=== PATIENT | female | born 1995 | race Caucasian/White ===

== ENCOUNTER → 2017-06-15 02:39 | Observation (INO) ==
[2017-06-15 00:05] VITALS: BP 122/67
[2017-06-15 00:24] LABS: Bilirubin,Urine Negative (Negative); Blood,Urine Negative (Negative); Clarity,Urine Cloudy (Clear); Color,Urine Dark Yellow (Yellow); Glucose,Urine (UA) Normal (Normal); Ketones,Urine 80 mg/dL (Negative); Leukocyte Esterase,Urine Large (Negative); Nitrite,Urine Negative (Negative); Protein,Urine 30 mg/dL (Neg-Trace); Urobilinogen,Urine Normal (Normal)
--- NOTE | 2017-06-15 00:26 | OB/GYN History & Physical ---
Date of Encounter: 06/15/17 Time of Encounter: 00:13 Assessment and Plan (1) UTI (urinary tract infection) during Current visit: Yes Status: Acute UA with large leukocytes, WBC's, and bacteria. She has had 2 rounds of outpatient treatment that she has not completed. Will treat with IV rocephin. Discharge home with PO antibiotics and precautions. POC per Dr. Antoine. Qualifiers: Trimester: third trimester Qualified Code(s): O23.43 - Unspecified infection of urinary tract in , third trimester (2) 32 weeks gestation of Current visit: Yes Status: Acute Good FM. NST reactive,. (3) Dehydration during Current visit: Yes Status: Acute Push PO fluids. 1 liter IV LR. History of Present Illness Chief complaint: right side pain HPI: Ms. Ma is a 22 year old female presenting at 32w2d with c/o constant sharp pain in right side of abdomen and back. She reports it started yesterday ( Sunday) morning. She tried heat at home that helped for a short time. Movement makes the pain worse. She denies cramping, leaking fluid, or vaginal bleeding. Good FM. She does report urinary frequency and dysuria. She was recently given antibiotics for UTI but did not finish them. Past Med Surg Social Fam HX - Past Medical History Medical history: no medical history Psychiatric history: no psych history - Past Surgical History Surgical History: no surgical history - Social History Smoking Status: Never smoker Alcohol use: none Drug use: none - Family History Mother Age: 42 Living Status: Still Living Hx Family Cardiac Disorders: No Hx Family Respiratory Disorders: No Hx Family Cancer: No Hx Family GI Disorders: No Hx Family Genitourinary Disorders: No Hx Family Endocrine Disorder: No Hx Family Musculoskeletal Disorders: No Hx Family Neuromuscular Disorders: No Hx Family Neurologic Disorders: No Hx Family HEENT Disorders: No Hx Family Autoimmune Disorders: No Hx Family Reproductive Disorders: No Hx Family Psychosocial Disorders: No Hx Family Medical Disorders: No Obstetrical History - Pregnancies : 1 Medications and Allergies Flintstones Multivit Chew Tab 1 tab PO DAILY 06/14/17 [History] Omeprazole 20 mg PO DAILY 06/14/17 [History] 3 Allergy/AdvReac Type Severity Reaction Status Date / Time No Known Allergies Allergy Verified 06/14/17 23:55 Review of System OB All systems PM: reviewed and no additional remarkable complaints except as stated Exam - Vital Signs Vital signs: Initial Vital Signs Pulse Resp BP 101 16 122/67 06/14/17 23:57 06/14/17 23:57 06/14/17 23:57 - Constitutional Constitutional: well developed, well nourished, mild distress - HEENT HEENT: Mucus Membranes Moist - Lungs Respiratory exam: CTAB - Cardiovascular Cardiovascular exam: RRR - Abdomen Abdomen: Present: gravid, non tender - Extremities Extremities exam: normal inspection - Anus/Rectum Anus/Rectum: Present: normal perianal skin - Comments Comments: + right CVAT Results All other labs normal. - VTE Reasons for not Prescribing Prophylaxis: Treatment not Indicated - Low risk for VTE
[2017-06-15 00:32] LABS: Bacteria,Urine Moderate per hpf (None-Few); RBC,Urine 0-3 per hpf (0-3); Squamous Epithelial Cell,Urine Moderate per lpf (None-Few); WBC,Urine 15-30 per hpf (0-3)
[2017-06-15 00:57] LABS: Basophils % 0.2 %; Eosinophils % 0.2 %; Hematocrit 29.9 % (35.3-44.9); Hemoglobin 9.9 g/dL (11.5-15.4); Immature Granulocytes % 0.4 % (0-4); Lymphocytes % 8.2 %; Mean Corpuscular HGB Conc 33.1 g/dL (31.6-35.5); Mean Corpuscular Hemoglobin 27.7 pg (28.0-33.3); Mean Corpuscular Volume 83.5 fL (83.0-100.0); Mean Platelet Volume 10.7 fL (9.4-12.4); Monocytes # 1.3 K/mcL (0.0-1.3); Monocytes % 10.2 %; Neutrophils # 10.2 K/mcL (1.6-8.9); Platelet Count 161 K/mcL (140-400); Red Blood Count 3.58 M/mcL (3.82-4.97); Red Cell Distribution Width 12.7 % (11.5-14.5); Segmented Neutrophils % 80.8 %
[~2017-06-15 02:39] MED LIST: Acetaminophen 325 MG TABLET PO ONE; Ringers Solution, Lactated 1,000 ML IVC ONE
== END | disposition home or self-care (01) ==
LOC: 1NENULAB
PROVIDERS: ADMIT Registered Nurse; ATTEND Registered Nurse

== ENCOUNTER → 2017-07-10 15:41 | Observation (INO) ==
[2017-07-10 13:08] LABS: Bilirubin,Urine Negative (Negative); Blood,Urine Negative (Negative); Clarity,Urine Hazy (Clear); Color,Urine Dark Yellow (Yellow); Glucose,Urine (UA) Normal (Normal); Ketones,Urine 40 mg/dL (Negative); Leukocyte Esterase,Urine Moderate (Negative); Nitrite,Urine Negative (Negative); Protein,Urine 100 mg/dL (Neg-Trace); Specific Gravity,Urine 1.022 (1.010-1.025); Urobilinogen,Urine Normal (Normal)
[2017-07-10 13:09] LABS: Bacteria,Urine None Seen per hpf (None-Few); Hyaline Casts,Urine None Seen per lpf (None-Few); RBC,Urine 0-3 per hpf (0-3); Squamous Epithelial Cell,Urine Many per lpf (None-Few); WBC,Urine 30-50 per hpf (0-3)
[2017-07-10 13:11] LABS: Amphetamine Screen,Urine Negative ng/mL (Cutoff=1000); Barbiturate Screen,Urine Negative ng/mL (Cutoff=200); Benzodiazepines Screen,Urine Negative ng/mL (Cutoff=200); Cannabinoid Screen,Urine Negative ng/mL (Cutoff = 50); Cocaine Screen,Urine Negative ng/mL (Cutoff= 300); Opiate Screen,Urine Negative ng/mL (Cutoff=300); Phencyclidine Screen,Urine Negative ng/mL (Cutoff=25)
[2017-07-10 13:27] LABS: Renal Epithelial Cells,Urine Present per hpf (None-Few); Transitional Epi Cells,Urine Present per hpf (None-Few)
--- NOTE | 2017-07-10 15:33 | Discharge Summary ---
Date of Encounter: 07/10/17 Time of Encounter: 15:32 - Discharge Diagnosis (1) 36 weeks gestation of Priority: Primary Status: Acute Comments: admitted for observation discharge home after no cervical change, patient educated on early stages of labor and encouraged to follow up with primary OB provider in [place]. (2) NST (non-stress test) reactive on surveillance Priority: Secondary Status: Acute Comments: baseline 125 bpm moderate variability +15x15 accels no decels noted. Cat. 1 tracing. - Discharge Medications Home Medications: Flintstones Multivit Chew Tab 1 tab PO DAILY 06/14/17 [History] Omeprazole 20 mg PO DAILY 06/14/17 [History] Allergies/Adverse Reactions: 3 Allergy/AdvReac Type Severity Reaction Status Date / Time No Known Allergies Allergy Verified 06/14/17 23:55 Data Procedures and tests throughout hospitalization: Laboratory Tests 07/10/17 07/10/17 12:50 12:50 Ur Specimen Adequacy See below A Urine Color Dark Yellow Urine Clarity Hazy A Urine pH 7.0 Ur Specific [place] 1.022 Urine Protein 100 H Urine Glucose (UA) Normal Urine Ketones 40 H Urine Blood Negative Urine Nitrite Negative Urine Bilirubin Negative Urine Urobilinogen Normal Ur Leukocyte Esterase Moderate H Urine Microscopic RBC 0-3 Urine Microscopic WBC 30-50 H Ur Squamous Epith Cells Many H Ur Transition Epith Cell Present Ur Renal Epithelial Cell Present Urine Bacteria None Seen Hyaline Casts None Seen Ur Culture Indicated? YES A Urine Opiates Screen Negative Ur Barbiturates Screen Negative Ur Phencyclidine Scrn Negative Ur Amphetamines Screen Negative U Benzodiazepines Scrn Negative Urine Cocaine Screen Negative U Marijuana (THC) Screen Negative Labs on day of discharge: Labs from last 24 hours 07/10/17 07/10/17 12:50 12:50 Ur Specimen Adequacy See below A Urine Color Dark Yellow Urine Clarity Hazy A Urine pH 7.0 Ur Specific [place] 1.022 Urine Protein 100 H Urine Glucose (UA) Normal Urine Ketones 40 H Urine Blood Negative Urine Nitrite Negative Urine Bilirubin Negative Urine Urobilinogen Normal Ur Leukocyte Esterase Moderate H Urine Microscopic RBC 0-3 Urine Microscopic WBC 30-50 H Ur Squamous Epith Cells Many H Ur Transition Epith Cell Present Ur Renal Epithelial Cell Present Urine Bacteria None Seen Hyaline Casts None Seen Ur Culture Indicated? YES A Urine Opiates Screen Negative Ur Barbiturates Screen Negative Ur Phencyclidine Scrn Negative Ur Amphetamines Screen Negative U Benzodiazepines Scrn Negative Urine Cocaine Screen Negative U Marijuana (THC) Screen Negative Date of admission: 07/10/17 12:04 Primary care physician: PCP NONE Discharging clinician: Kellie Trevino Anticipated date of discharge: 07/10/17 - Patient Status Disposition: Home, Self-Care Condition: Good Functional capacity at discharge: independent ambulation - Discharge Instructions Follow Up With: NONE,PCP [Primary Care Provider] - - Diet and Activity Activity: increase activity as tolerated Diet: regular diet Hospital Course NUTRITION COUNSELOR Hospital course: Patient is 22 y/o at 36 weeks gestation. Denies LOF or VB. Patient reports +FM. Time Attestation: Total time spent providing and/or coordinating discharge services: Time Spent: Less than 30 minutes Exam - Other Additional findings: Patient seen and assessed by RN. FHR 125 bpm moderate variability +15x15 accels no decels noted. Cat. 1 tracing. 4/100/0 - VTE Reasons for not Prescribing Prophylaxis: Treatment not Indicated - Low risk for VTE
== END | disposition home or self-care (01) ==
LOC: 1NENULAB
PROVIDERS: ADMIT Obstetrics & Gynecology; ATTEND Obstetrics & Gynecology

== ENCOUNTER 2017-07-11 02:30 | Inpatient (IN) ==
[2017-07-11] MEDS ORDERED: Ringers Solution, Lactated 1,000 ML ONE ×3 (02:58→06:55)
[2017-07-11] MEDS ORDERED: *HR* FentaNYL (PF) 100 MCG/2 ML VIAL ONE (03:28)
[2017-07-11] MEDS ORDERED: Bupivacaine-MPF 0.25% 10 ML VIAL ONE (03:28)
[2017-07-11] MEDS ORDERED: Epidural Premix (fent/bupiv) 110 ML EP ONE (03:29)
[2017-07-11] MEDS ORDERED: EPHEDrine 50 MG/ML VIAL ONE (04:26)
[2017-07-11 06:19] LABS: Basophils % 0.2 %; Eosinophils % 0.1 %; Hematocrit 32.6 % (35.3-44.9); Hemoglobin 10.5 g/dL (11.5-15.4); Immature Granulocytes % 0.8 % (0-4); Lymphocytes # 1.1 K/mcL (0.6-4.6); Lymphocytes % 5.8 %; Mean Corpuscular HGB Conc 32.2 g/dL (31.6-35.5); Mean Corpuscular Hemoglobin 26.2 pg (28.0-33.3); Mean Corpuscular Volume 81.3 fL (83.0-100.0); Mean Platelet Volume 11.7 fL (9.4-12.4); Monocytes # 1.1 K/mcL (0.0-1.3); Monocytes % 5.9 %; Platelet Count 227 K/mcL (140-400); Red Blood Count 4.01 M/mcL (3.82-4.97); Red Cell Distribution Width 12.7 % (11.5-14.5); Segmented Neutrophils % 87.2 %
--- NOTE | 2017-07-11 06:45 | OB/GYN History & Physical ---
Date of Encounter: 07/11/17 Time of Encounter: 02:17 Assessment and Plan (1) Spontaneous onset of labor Current visit: Yes Status: Acute admit for delivery (2) 36 weeks gestation of Current visit: No Status: Acute GBS negative nursery notified History of Present Illness Chief complaint: Contractions HPI: Ms. Ma is a 22 year old female at 36w2d presents to labor and delivery for complaints of contractions that started earlier today but recently got more intense. Patient was seen in L&D earlier today and was 4-5cm. Patient reports + FM, denies LOF or VB. Patient denies any complications with . Blood type: O negative, Rubella: nonimmune, Hep B: Nonreactive, GBS: Negative. Past Med Surg Social Fam HX - Past Medical History Source: patient Medical history: no medical history Psychiatric history: no psych history - Past Surgical History Surgical History: no surgical history - Social History Smoking Status: Never smoker Smokeless Tobacco Status: No Alcohol use: none Drug use: none Current living situation: Home - Independent Activity Level: Independent ambulation Recent Out of Country Travel Within the Last 8 Weeks: No Exposure or Possible Exposure to Illness During Travel: No - Family History Mother Adopted: No Living Status: Still Living Hx Family Cardiac Disorders: No Hx Family Respiratory Disorders: No Hx Family Cancer: No Hx Family GI Disorders: No Hx Family Endocrine Disorder: No Hx Family Neuromuscular Disorders: No Hx Family Neurologic Disorders: No Hx Family HEENT Disorders: No Hx Family Autoimmune Disorders: No Obstetrical History - Pregnancies : 1 Para: 0 Term: 0 : 0 Ab's: 0 Livin Medications and Allergies Flintstones Multivit Chew Tab 1 tab PO DAILY 06/14/17 [History] Omeprazole 20 mg PO DAILY 06/14/17 [History] 3 Allergy/AdvReac Type Severity Reaction Status Date / Time No Known Allergies Allergy Verified 06/14/17 23:55 Review of System OB - Constitutional Constitutional ROS IM: no fever(s), no headache(s) - Cardiovascular Cardiovascular: no chest pain, no palpitations, no syncope - Respiratory Respiratory: no dyspnea - Gastrointestinal Gastrointestinal: no constipation, no diarrhea, no heartburn, no nausea, no vomiting - Genitourinary Genitourinary: no abnormal vaginal bleeding, no dysuria, no flank pain, no urinary urgency, no vaginal discharge, no vaginal odor, no vaginal pruritis Exam - Constitutional Constitutional: well developed, well nourished, no acute distress, average body habitus - HEENT HEENT: Normocephaly, Mucus Membranes Moist - Neck Neck exam: full ROM, supple - Lungs Respiratory exam: CTAB - Cardiovascular Cardiovascular exam: RRR, +S1, +S2 - Abdomen Abdomen: Present: bowel sounds normal, gravid, non tender - Extremities Extremities exam: full ROM, normal capillary refill, normal inspection Deep Tendon Reflex Grade: 2+ Normal - Cervix Dilation: 6 Effacement: 100 Station: 0 - Uterus Uterus exam: Present: normal size, normal contour - Comments Comments: FHR 135 bpm moderate variability +15x15 accels no decels noted. Irregular contractions. Cat. 1 tracing. Results Result Diagrams: 07/11/17 02:45 Abnormal lab results WBC 18.3 K/mcL (4.3-11.1) H 07/11/17 02:45 Hgb 10.5 g/dL (11.5-15.4) L 07/11/17 02:45 Hct 32.6 % (35.3-44.9) L 07/11/17 02:45 MCV 81.3 fL (83.0-100.0) L 07/11/17 02:45 MCH 26.2 pg (28.0-33.3) L 07/11/17 02:45 Neutrophils # 16.0 K/mcL (1.6-8.9) H 07/11/17 02:45 All other labs normal.
--- NOTE | 2017-07-11 06:46 | Anesthesia Evaluation PreOp ---
Date of Encounter: 07/11/17 Time of Encounter: 03:30 - Past History Planned Operation: SUKHWINDER Cardiac History: Denies any Significant Hx Pulmonary History: Denies Any Significant HX CANTEEN MANAGER History: Denies Any Significant HX Other Medical History: Denies Any Significant HX Anesthesia History: Past Anesthesia (never had NA or GA; denies family h/o GA complications) : Yes Test: Positive Alcohol Use: none Drug use: none Medications and Allergies Flintstones Multivit Chew Tab 1 tab PO DAILY 06/14/17 [History] Omeprazole 20 mg PO DAILY 06/14/17 [History] 3 Allergy/AdvReac Type Severity Reaction Status Date / Time No Known Allergies Allergy Verified 06/14/17 23:55 - Meds/Allergy Pre-op Review Medications Reviewed: Yes Allergies Reviewed: Yes Beta Blockers on Current Med List: No Anesthesia Results - Labs 07/11/17 02:45 Anesthesia Exam O2 Sat Height 1.55 cm Weight 65.8 kg NPO (# of Hours): solids > 8hrs Pain Scale: 9 Pain Scale Used: Numeric (1 - 10) - HEENT Pupil (Motor): Pupils equal Mallampati: II Teeth: Normal Oral Opening: Greater than 3 - CANTEEN MANAGER LOC: Oriented CANTEEN MANAGER Motor: Normal RUE, Normal LUE, Normal RLE, Normal LLE, Normal Face CANTEEN MANAGER Sensory: Normal: RUE, LUE, RLE, LLE, Face - Cardiac Rhythm: Regular Murmur: None - Pulmonary Breath Sounds: bilateral Clear Respiratory Effort: Symmetrical Anesthesia Assess/Plan ASA Score: 2 Modified Sunny Scale for Level of Consciousness: Anixous, agitated or restless Anesthetic Plan: Regional Autologous Blood: No Monitoring Plan: Standard Monitors Recovery Plan: Other
[2017-07-11] MEDS ORDERED: Bupivacaine-MPF 0.25% 10 ML VIAL EP ONE (06:48)
[2017-07-11] MEDS ORDERED: *HR* FentaNYL (PF) 100 MCG/2 ML VIAL EP ONE (06:48)
--- NOTE | 2017-07-11 06:48 | Anesthesia Procedures ---
Date of Encounter: 07/11/17 Time of Encounter: 06:46 Procedures: Anesthesia - Epidural/Spinal Patient ID/Chart reviewed: Yes Patient examined: Yes OB Eval: Gestational age: 36 weeks 2 days OB Eval: : 1 OB Eval: Hx Para: 0 OB Eval: Dilated at (cm): 6 OB Eval: Contractions: Non-stressed pattern Consent Obtained: Yes Supplemental Oxygen: None/Room Air Site Prep: Aseptic Technique, Sterile prep and drape, Povidone-Iodine 1% Patient position: upright Local Anesthetic: Lidocaine 1% Amount of Local Anesthetic used: 3 Touhy Needle Gauge: 18 Touhy Needle Depth (cm): 5 Catheter Depth at Skin (cm): 10 Test Dose (1.5% Lido + Epi): Volume given (mls): 5 Test Dose Result: Negative Loading Dose: 0.25% Marcaine (mls): 5 Loading Dose: Fentanyl (mcg): 100 Loading Dose Administered: Thru Catheter Infusion Med: 0.125% Bupivacaine w/ 2 mcg/ml Fentanyl Infusion Rate (mls/hr): [address]: Tegaderm, Tape Interspace Used: L3-L4 Loss of Resistance (KASIE): Yes Blood: No CSF: No Paresthesia: No Vitals + FHT's: please see Lexy WHITEHEAD's electronic documentation
--- NOTE | 2017-07-11 06:55 | OB Labor Progress Note ---
Date of Encounter: 07/11/17 Time of Encounter: 04:20 Labor Progress Note - Subjective Subjective: Called to patient's room. Patient had just received epidural and had a prolonged decel with FHR down wo t60 bpm after epidural bolus. O2 masks on, IV bolus going. - Cervix Cervix: 7.5/100/0 - Heart Tones Heart Tones: prolonged decel down to 60 bpm FHR returned to 130 bpm - [place]: irregular - Interventions Interventions: SVE, AROM moderate amount of clear fluid. Patient repositioned. - Plan Plan: Continue labor management.
[2017-07-11] MEDS ORDERED: Epidural Premix (fent/bupiv) 110 ML EP SCH (07:00)
[2017-07-11] MEDS ORDERED: Lidocaine 1% 20 ML MDV ONE (09:04)
[2017-07-11] MEDS: Oxytocin 20 units/ LR 1000 mL 20 UNIT/1,000 ML BAG IVC SCH ×2 (09:36→10:51)
--- NOTE | 2017-07-11 09:49 | OB/GYN Procedure Note ---
Delivery - Delivery Date: 07/11/17 Provider: Krystyna Napoles Intrapartum events: foul smelling fluid Delivery induction: none Delivery augmentation: rupture of membranes Delivery monitor: external FHT, external uterine Anesthesia: epidural Estimated Blood Loss: 200 - Infant (s) A Delivery Date: 07/11/17 Infant Delivery Time: 08:52 Presentation: vertex Position: OA Route of delivery: Gender: Male Viability: Viable Pounds: 5 Ounces: 7 Weight Gram: 2480 kg at 1 minute: 8 at 5 mins: 9 Shoulder Dystocia: not encountered Specimens collected: cord blood Placenta: complete extraction (by Dr. Martinez from the vaginal vault) Cord: 3 umbilical vessels - Repair Episiotomy: none Laceration Description: Perineal - 1st Degree - Complications Delivery complications: retained placenta Delivery comments: Maternal bearing down efforts to of liveborn male. Vertex delivered OA, shoulders and body easily followed. Vigorous infant placed on maternal abdomen for drying and stimulation. APGARS 8/9. Placenta did not deliver spontaneously. Manual extraction by Dr. Martinez, complete upon inspection. Pitocin per policy. Fundus massaged to firm. EBL 200. Odor noted while awaiting placenta delivery, placenta cultured and sent to pathology. 1st degree perineal laceration noted repaired by Dr. Martinez. and mother stable and bonding skin to skin. I, Cassandra Martinez, was asked to present for retained placenta 44 minutes post delivery upon arrival. Vaginal bleeding minimal. Placenta is palpated in the vaginal vault and manually removed without difficulty with traction on the placenta in the vaginal. The placental disk is intact without missing cotyledons. First degree perineal laceration is reparied with 3-0 vicryl in standard fashion. Sponge and needle counts correct at the end of the procedure. Patient tolerated the procedure well. - Disposition Mom disposition: stable in LDR disposition: stable in LDR
[2017-07-11] MEDS ORDERED: Rho Immune Globulin 1,500 UNIT SYRINGE IM PRN (10:20)
[2017-07-11] MEDS ORDERED: Acetaminophen 325 MG TABLET PO PRN (10:20)
[2017-07-11] MEDS ORDERED: Lanolin 28 GM TUBE TP PRN (10:20)
[2017-07-11] MEDS ORDERED: Measles/Mumps/Rubella Vacc 0.5 ML VIAL SQ PRN (10:20)
[2017-07-11] MEDS ORDERED: Benzocaine/Menthol 56 GM AEROSOL SPRAY TP PRN (10:20)
[2017-07-11] MEDS: Ibuprofen 600 MG TABLET PO PRN (17:45)
[2017-07-12] MEDS: Ibuprofen 600 MG TABLET PO PRN (04:53)
[2017-07-12 06:34] LABS: Basophils # 0.1 K/mcL (0.0-0.2); Basophils % 0.4 %; Eosinophils # 0.2 K/mcL (0.0-0.6); Eosinophils % 1.2 %; Hematocrit 27.5 % (35.3-44.9); Hemoglobin 8.9 g/dL (11.5-15.4); Immature Granulocytes % 0.9 % (0-4); Lymphocytes # 2.3 K/mcL (0.6-4.6); Lymphocytes % 17.1 %; Mean Corpuscular HGB Conc 32.4 g/dL (31.6-35.5); Mean Corpuscular Hemoglobin 26.3 pg (28.0-33.3); Mean Corpuscular Volume 81.4 fL (83.0-100.0); Mean Platelet Volume 11.7 fL (9.4-12.4); Monocytes # 0.9 K/mcL (0.0-1.3); Monocytes % 6.9 %; Platelet Count 211 K/mcL (140-400); Red Blood Count 3.38 M/mcL (3.82-4.97); Segmented Neutrophils % 73.5 %
[2017-07-12 08:36] VITALS: BP 101/66
[2017-07-12] MEDS ORDERED: Prenatal Vit/FA 1 EACH TABLET PO SCH (09:00)
--- NOTE | 2017-07-12 09:08 | Discharge Summary ---
Date of Encounter: 07/12/17 Time of Encounter: 09:02 - Discharge Diagnosis (1) Vaginal delivery Priority: Primary Status: Acute Comments: Pt meeting milestones. She is requesting discharge home today. (2) Mother currently breast-feeding Priority: Secondary Status: Acute Comments: Pt requesting rx for breastpump. consult this am. Rx given. (3) anemia Priority: Secondary Status: Acute Comments: Discharge home on iron. - Discharge Medications Prescriptions: Ibuprofen [Motrin] 600 mg PO Q6HR PRN #60 tablet PRN Reason: Cramping Breast Pump [BREAST PUMP] 1 each .ROUTE AD #1 each Docusate [Colace] 100 mg PO BID #60 capsule Ferrous Sulfate 325 mg PO DAILY #30 tablet Home Medications: Flintstones Multivit Chew Tab 1 tab PO DAILY 06/14/17 [History] Benzocaine/Menthol [place] [Dermoplast [place]ell] 1 appl TP QID PRN aerosol 07/12/17 [Rx] Breast Pump [BREAST PUMP] 1 each .ROUTE AD #1 each 07/12/17 [Rx] Docusate [Colace] 100 mg PO BID #60 capsule 07/12/17 [Rx] Ferrous Sulfate 325 mg PO DAILY #30 tablet 07/12/17 [Rx] Ibuprofen [Motrin] 600 mg PO Q6HR PRN #60 tablet 07/12/17 [Rx] Lanolin 1 appl TP QID PRN tube 07/12/17 [Rx] Allergies/Adverse Reactions: 3 Allergy/AdvReac Type Severity Reaction Status Date / Time No Known Allergies Allergy Verified 06/14/17 23:55 Data Procedures and tests throughout hospitalization: Laboratory Tests 07/11/17 07/11/17 07/12/17 02:45 09:50 06:02 WBC 18.3 H 13.7 H RBC 4.01 3.38 L Hgb 10.5 L 8.9 L D Hct 32.6 L 27.5 L MCV 81.3 L 81.4 L MCH 26.2 L 26.3 L MCHC 32.2 32.4 RDW 12.7 13.0 Plt Count 227 211 MPV 11.7 11.7 Immature Gran % 0.8 0.9 Seg Neutrophils % 87.2 73.5 Lymphocytes % 5.8 17.1 Monocytes % 5.9 6.9 Eosinophils % 0.1 1.2 Basophils % 0.2 0.4 Neutrophils # 16.0 H 10.0 H Lymphocytes # 1.1 2.3 Monocytes # 1.1 0.9 Eosinophils # 0.0 0.2 Basophils # 0.0 0.1 Baby's Blood Type O RH NEGATIVE Mother's Blood Type O RH NEGATIVE Rhogam Indicated NO Labs on day of discharge: Labs from last 24 hours 07/12/17 07/11/17 06:02 09:50 WBC 13.7 H RBC 3.38 L Hgb 8.9 L D Hct 27.5 L MCV 81.4 L MCH 26.3 L MCHC 32.4 RDW 13.0 Plt Count 211 MPV 11.7 Immature Gran % 0.9 Seg Neutrophils % 73.5 Lymphocytes % 17.1 Monocytes % 6.9 Eosinophils % 1.2 Basophils % 0.4 Neutrophils # 10.0 H Lymphocytes # 2.3 Monocytes # 0.9 Eosinophils # 0.2 Basophils # 0.1 Baby's Blood Type O RH NEGATIVE Mother's Blood Type O RH NEGATIVE Rhogam Indicated NO Date of admission: 07/11/17 02:30 Primary care physician: PCP NONE Consults: 07/11/17 10:20 Consult to [employer] [CONS] Routine Comment: Vaginal delivery, consult needed Consult to [employer] Front Ventilator [CONS] Routine Reason for SW Consult: FOB and boyfriend issues Discharging clinician: Yashira Dietz Anticipated date of discharge: 07/12/17 - Patient Status Disposition: Home, Self-Care Condition: Good Functional capacity at discharge: independent ambulation Overall status at discharge: patient is progressing back to baseline - Discharge Instructions Follow Up With: NONE,PCP [Primary Care Provider] - Milvia Tejeda DO [Non-Partnered Physician] - - Diet and Activity Activity: increase activity as tolerated Diet: regular diet Hospital Course Reason for admission: active labor Delivery: Episiotomy: none Laceration: 1st degree Other procedures: none complications: none Discharge diagnosis: delivery baby: male Hospital course: - Delivery Date: 07/11/17 Provider: Krystyna Napoles Intrapartum events: foul smelling fluid Delivery induction: none Delivery augmentation: rupture of membranes Delivery monitor: external FHT, external uterine Anesthesia: epidural Estimated Blood Loss: 200 - (s) Infant A Delivery Date: 07/11/17 Infant Delivery Time: 08:52 Presentation: vertex Position: OA Route of delivery: Gender: Male Viability: Viable Pounds: 5 Ounces: 7 Weight Gram: 2480 kg at 1 minute: 8 at 5 mins: 9 Shoulder Dystocia: not encountered Specimens collected: cord blood Placenta: complete extraction (by Dr. Martinez from the vaginal vault) Cord: 3 umbilical vessels - Repair Episiotomy: none Laceration Description: Perineal - 1st Degree - Complications Delivery complications: retained placenta - Disposition Mom disposition: discharge home PPD#1 disposition: home with mother, Time Attestation: Total time spent providing and/or coordinating discharge services: Time Spent: Less than 30 minutes Exam - Constitutional Vitals: Temp Pulse Resp BP Pulse Ox 98.1 F 72 12 101/66 97 07/12/17 08:35 07/12/17 08:35 07/12/17 08:35 07/12/17 08:35 07/12/17 08:35 General appearance IM: A&O X 3 - Respiratory Respiratory exam: Present: CTAB - Cardiovascular Cardiovascular exam IM: Present: RRR, +S1, +S2 - GI/Abdominal GI/Abdominal exam IM: soft - Rectal Rectal exam: deferred - Uterine Tone: Firm Uterus Position: 1 Finger Below Umbilicus - Extremities Exam Extremities exam IM: Present: pedal edema (1+ bilaterally, no erythema or warmth ) - Neurological Exam Neurological exam: normal gait, oriented X3 - Psychiatric Additional comments: reports good mood - Other Additional findings: desires micronor for contraception, rx given, pt instructed to start pill once well established and not before 2 weeks . Pt also informed of need for back-up control for first month and anytime she misses her pill by 3 hours.
== END 2017-07-12 10:30 | disposition home or self-care (01) | DRG 541 ==
LOC: 1NENULAB → 1NENUOBS 12:38
PROVIDERS: ADMIT Advanced Practice Midwife; ATTEND Advanced Practice Midwife